=== PATIENT | female | born 1990 | race Hispanic/Latino ===

== ENCOUNTER 2020-02-05 14:44 | Emergency (ER) | payer MEDICAID ==
[2020-02-05] MEDS ORDERED: ONDANSETRON HCL 4 MG/2 ML VIAL ONE (16:47)
[2020-02-05 17:10] LABS: BASOPHILS % (AUTO) 0.2 % (0.0-5.0); HEMATOCRIT 37.6 % (36-48); MEAN CORPUSCULAR HEMOGLOBIN 26.1 pg (27.0-33.0); MEAN CORPUSCULAR HGB CONC 32.4 g/dL (32.0-36.0); MEAN CORPUSCULAR VOLUME 80.3 fL (79-99); MONOCYTES % (AUTO) 5.9 % (3.0-13.0); NEUTROPHILS % (AUTO) 80.2 % (40.0-77.0); PLATELET COUNT (AUTO) 289 K/uL (130-400); RED BLOOD CELL COUNT(AUTO) 4.68 MIL/uL (4.00-5.50); RED CELL DISTRIBUTION WIDTH 14.6 % (11.0-15.5); WHITE BLOOD COUNT (AUTO) 9.9 K/uL (4.8-10.8)
[2020-02-05 17:33] LABS: ALBUMIN 2.9 g/dL (3.5-5.0); BILIRUBIN,TOTAL 0.3 mg/dL (0.2-1.0); CREATININE 0.4 mg/dL (0.5-1.5); TOTAL PROTEIN, SERUM 7.4 g/dL (6.0-8.3)
[2020-02-05] MEDS ORDERED: POTASSIUM BICARB/CIT AC 25 MEQ TABLET.EFF ONE (17:53)
== END 2020-02-05 18:31 | disposition home or self-care (01) ==
LOC: EDH 14:44
DX: O21.9 Vomiting of pregnancy, unspecified (principal); Z3A.20 20 weeks gestation of pregnancy; Z90.49 Acquired absence of other specified parts of digestive tract
CPT/HCPCS: 36415; 80053; 82550; 84484; 85025; 93005; 96361; 96374; 99284; J2405

== ENCOUNTER 2020-05-24 17:21 | Observation (INO) | payer MEDICAID ==
[~2020-05-24] VITALS: Ht 154.9 cm; Wt 78.5 kg
[2020-05-24 18:00] LABS: APPEARANCE,URINE Clear (CLEAR); BILIRUBIN,URINE Negative (NEGATIVE); COLOR,URINE Yellow (YELLOW); GLUCOSE, URINE (UA) Negative (NEGATIVE); KETONES,URINE Negative (NEGATIVE); LEUKOCYTE ESTERASE ,URINE Large (NEGATIVE); NITRATE,URINE Negative (NEGATIVE); OCCULT BLOOD,URINE Negative (NEGATIVE); PH,URINE 7.5 (5.0-8.0); PROTEIN,URINE Negative (NEGATIVE)
[2020-05-24 18:08] LABS: BACTERIA,URINE Few /HPF (None Seen); RBC,URINE 0-1 /HPF (0-1); SQUAMOUS EPITHELIAL CELL,UR Moderate /HPF (0-2); TRANSITIONAL EPI CELLS,URINE Few /HPF (None Seen)
[2020-05-24] MEDS: LACTATED RINGERS 1000ML 1,000 ML IV SCH ×2 (18:25→18:43)
[2020-05-24] MEDS ORDERED: AMPICILLIN 2GM+NS 100ML 100 ML IV SCH (19:00)
[2020-05-24] MEDS ORDERED: OXYTOCIN-LR 20 UNITS/1000 ML 1,000 ML IV SCH (19:00)
[2020-05-24 19:05] LABS: HEMATOCRIT 31.2 % (36-48); MEAN CORPUSCULAR HEMOGLOBIN 25.2 pg (27.0-33.0); MEAN CORPUSCULAR HGB CONC 32.1 g/dL (32.0-36.0); MEAN CORPUSCULAR VOLUME 78.6 fL (79-99); RED BLOOD CELL COUNT(AUTO) 3.97 MIL/uL (4.00-5.50); RED CELL DISTRIBUTION WIDTH 14.3 % (11.0-15.5); WHITE BLOOD COUNT (AUTO) 10.8 K/uL (4.8-10.8)
[2020-05-24] MEDS: AMPICILLIN 1GM+NS 50ML 50 ML IV SCH (23:40)
[2020-05-25] MEDS: AMPICILLIN 1GM+NS 50ML 50 ML IV SCH (03:25)
[2020-05-25] MEDS: LACTATED RINGERS 1000ML 1,000 ML IV SCH (03:25)
[2020-05-25] MEDS ORDERED: PREN-196 PO (04:27)
[2020-05-25] MEDS ORDERED: TERBUTALINE SULFATE VIAL 1MG/ML SQ SCH (06:30)
[2020-05-25] MEDS ORDERED: LACTATED RINGERS 1000ML 1,000 ML IV SCH (06:30)
[2020-05-25 12:37] LABS: RAPID PLASMA REAGIN NONREACTIVE (NONREACTIVE)
[2020-05-26 07:15] LABS: HEPATITIS Bs ANTIGEN SCREEN P Negative (Negative)
== END 2020-05-25 08:00 | disposition home or self-care (01) ==
LOC: EDH 17:21 → LDH 17:22
PROVIDERS: ADMIT Obstetrics & Gynecology; ATTEND Obstetrics & Gynecology
DX: O62.9 Abnormality of forces of labor, unspecified (principal); Z90.49 Acquired absence of other specified parts of digestive tract; Z3A.36 36 weeks gestation of pregnancy
CPT/HCPCS: 36415; 81001; 85027; 86592; 86701; 86850; 86900; 86901; 87088; 87340; 87390; 96361 ×2; 96365; 96366 ×2; 99284; G0378 ×8; J0290 ×3; J7120 ×3; 96360; J3105

== ENCOUNTER 2020-05-28 15:46 | Observation (INO) | payer MEDICAID ==
[~2020-05-28] VITALS: Ht 154.9 cm; Wt 78.0 kg
[~2020-05-28 15:46] MED LIST: PREN-196 PO
[2020-05-28 16:36] LABS: APPEARANCE,URINE Cloudy (CLEAR); BILIRUBIN,URINE Negative (NEGATIVE); COLOR,URINE Yellow (YELLOW); GLUCOSE, URINE (UA) Negative (NEGATIVE); KETONES,URINE 40 mg/dL (NEGATIVE); LEUKOCYTE ESTERASE ,URINE Large (NEGATIVE); NITRATE,URINE Negative (NEGATIVE); OCCULT BLOOD,URINE Small (NEGATIVE); PH,URINE 6.5 (5.0-8.0); PROTEIN,URINE Negative (NEGATIVE)
[2020-05-28] MEDS: LACTATED RINGERS 1000ML 1,000 ML IV SCH ×2 (16:40→18:04)
[2020-05-28 16:45] LABS: BACTERIA,URINE Few /HPF (None Seen); SQUAMOUS EPITHELIAL CELL,UR Moderate /HPF (0-2); TRANSITIONAL EPI CELLS,URINE Few /HPF (None Seen)
[2020-05-28 16:46] LABS: YEAST,URINE BUDDING Rare /HPF (None Seen)
[2020-05-28 18:57] LABS: HEMATOCRIT 31.5 % (36-48); MEAN CORPUSCULAR HEMOGLOBIN 24.9 pg (27.0-33.0); MEAN CORPUSCULAR HGB CONC 31.4 g/dL (32.0-36.0); MEAN CORPUSCULAR VOLUME 79.1 fL (79-99); PLATELET COUNT (AUTO) 270 K/uL (130-400); RED BLOOD CELL COUNT(AUTO) 3.98 MIL/uL (4.00-5.50); RED CELL DISTRIBUTION WIDTH 14.5 % (11.0-15.5); WHITE BLOOD COUNT (AUTO) 11.3 K/uL (4.8-10.8)
[2020-05-28] MEDS ORDERED: ROPIVACAINE 0.2% 100ML VIAL 100 ML EP SCH (19:00)
[2020-05-28] MEDS ORDERED: LACTATED RINGERS 500 ML 500 ML IV PRN (19:00)
[2020-05-28] MEDS ORDERED: NALOXONE HCL 0.4 MG/1 ML ML IV PRN (19:00)
[2020-05-28] MEDS ORDERED: LACTATED RINGERS 1000ML 1,000 ML IV PRN (19:00)
[2020-05-28] MEDS ORDERED: AMPICILLIN 2GM+NS 100ML 100 ML IV SCH (19:00)
[2020-05-28] MEDS ORDERED: MEPERIDINE-PF 50 MG/ML SYG IVP PRN (19:00)
[2020-05-28] MEDS ORDERED: PROMETHAZINE HCL 25 MG/ML 1ML AMPULE IM PRN (19:00)
[2020-05-28] MEDS ORDERED: EPHEDRINE SULFATE 50 MG/ML AMPULE IVP PRN (19:00)
[2020-05-28] MEDS ORDERED: OXYTOCIN-LR 20 UNITS/1000 ML 1,000 ML IV SCH (19:00)
[2020-05-28 19:18] LABS: AMPHET/METH SCREEN,URINE NEGATIVE (NEGATIVE); BARBITURATE SCREEN, URINE NEGATIVE (NEGATIVE); BENZODIAZEPINES SCREEN,URINE NEGATIVE (NEGATIVE); CANNABINOID SCREEN,URINE NEGATIVE (NEGATIVE); COCAINE SCREEN,URINE NEGATIVE (NEGATIVE); OPIATE SCREEN,URINE NEGATIVE (NEGATIVE); PHENCYCLIDINE SCREEN,URINE NEGATIVE (NEGATIVE)
[2020-05-28] MEDS ORDERED: LIDOCAINE HCL 1% 20 ML VIAL ONE (20:40)
[2020-05-28] MEDS: AMPICILLIN 1GM+NS 50ML 50 ML IV SCH (23:02)
[2020-05-29] MEDS: AMPICILLIN 1GM+NS 50ML 50 ML IV SCH ×2 (02:56→08:44)
[2020-05-29] MEDS: LACTATED RINGERS 1000ML 1,000 ML IV SCH ×2 (02:57→08:44)
== END 2020-05-29 10:05 | disposition home or self-care (01) ==
LOC: EDH 15:46 → LDH 15:47
PROVIDERS: ADMIT Obstetrics & Gynecology; ATTEND Obstetrics & Gynecology
DX: O62.9 Abnormality of forces of labor, unspecified (principal); M54.5 Low back pain; Z90.49 Acquired absence of other specified parts of digestive tract; Z98.890 Other specified postprocedural states; Z3A.37 37 weeks gestation of pregnancy
CPT/HCPCS: 36415; 80305; 81001; 85027; 86592; 86850; 86900; 86901; 87340; 96361 ×2; 96365; 96366 ×2; 96372; 96375; 99284; G0378 ×10; J0290 ×4; J2175; J2550; J2590; J7120 ×5; 96360

== ENCOUNTER 2020-06-08 07:04 | Inpatient (IN) | payer MEDICAID ==
[~2020-06-08] VITALS: Ht 154.9 cm; Wt 74.8 kg
[2020-06-08] MEDS ORDERED: OXYTOCIN 10 USP UNITS/ML 20 UNIT in LACTATED RINGERS 1000ML 1,000 ML IV SCH (07:45)
[2020-06-08 08:03] LABS: HEMATOCRIT 33.9 % (36-48); MEAN CORPUSCULAR HEMOGLOBIN 24.2 pg (27.0-33.0); MEAN CORPUSCULAR VOLUME 78.1 fL (79-99); PLATELET COUNT (AUTO) 288 K/uL (130-400); RED BLOOD CELL COUNT(AUTO) 4.34 MIL/uL (4.00-5.50); RED CELL DISTRIBUTION WIDTH 14.5 % (11.0-15.5); WHITE BLOOD COUNT (AUTO) 14.9 K/uL (4.8-10.8)
[2020-06-08] MEDS ORDERED: OXYTOCIN-LR 20 UNITS/1000 ML 1,000 ML IV SCH ×3 (08:45→13:30)
[2020-06-08] MEDS: BUTORPHANOL TARTRATE 2 MG/ML IVP PRN ×2 (09:02→10:31)
[2020-06-08] MEDS ORDERED: LIDOCAINE HCL 1% 20 ML VIAL INJ PRN (10:15)
[2020-06-08] MEDS ORDERED: METHYLERGONOVINE MALEATE 0.2 MG/1 ML ML ONE ×2 (11:07→13:46)
[2020-06-08] MEDS: IBUPROFEN 600 MG TABLET PO PRN (11:42)
[2020-06-08] MEDS ORDERED: MEASLES/MUMPS/RUBELLA VACCINE, LIVE 0.5 ML/VIAL SQ PRN (11:45)
[2020-06-08] MEDS ORDERED: ACETAMINOPHEN-CODEINE 300/30MG TAB PO PRN (11:45)
[2020-06-08] MEDS ORDERED: WITCH HAZEL 1 PAD TP PRN (11:45)
[2020-06-08] MEDS ORDERED: BENZOCAINE/LANOLIN/ALOE VERA 60 ML AEROSOL TP PRN (11:45)
[2020-06-08] MEDS ORDERED: LANOLIN 30GM OINTMENT TP PRN (11:45)
[2020-06-08] MEDS ORDERED: DIPH,PERTUSS(ACELL),TET VAC/PF 0.5 ML VIAL IM PRN (11:45)
[2020-06-08 13:01] VITALS: BP 123/75
[2020-06-08] MEDS ORDERED: AMMONIA 1 EA AMP IH ONE (13:39)
[2020-06-08] MEDS ORDERED: MISOPROSTOL 100 MCG TABLET ONE (13:46)
[2020-06-08] MEDS ORDERED: MISOPROSTOL 200 MCG TABLET ONE (13:49)
[2020-06-08] MEDS ORDERED: TRANEXAMIC ACID 1000MG/10ML ONE (13:56)
[2020-06-08] MEDS ORDERED: OXYTOCIN-LR 20 UNITS/1000 ML IV SCH (14:00)
[2020-06-08] MEDS ORDERED: TRANEXAMIC ACID 1,000 MG in SODIUM CHLORIDE 0.9% 100 ML IV SCH (14:00)
[2020-06-08] MEDS ORDERED: LACTATED RINGERS 1000ML 1,000 ML IV SCH (14:00)
[2020-06-08] MEDS ORDERED: METHYLERGONOVINE MALEATE 0.2 MG/1 ML ML IM SCH (14:15)
[2020-06-08] MEDS ORDERED: MEPERIDINE-PF 50 MG/ML SYG ONE (14:15)
[2020-06-08 14:23] LABS: HEMATOCRIT 31.3 % (36-48); MEAN CORPUSCULAR HEMOGLOBIN 24.8 pg (27.0-33.0); MEAN CORPUSCULAR HGB CONC 31.6 g/dL (32.0-36.0); MEAN CORPUSCULAR VOLUME 78.4 fL (79-99); RED BLOOD CELL COUNT(AUTO) 3.99 MIL/uL (4.00-5.50); RED CELL DISTRIBUTION WIDTH 14.3 % (11.0-15.5); WHITE BLOOD COUNT (AUTO) 23.1 K/uL (4.8-10.8)
[2020-06-08] MEDS ORDERED: COMPOUND IV REFRIGERATED 1 EACH IVSOLN MISC PRN (14:30)
[2020-06-08 14:43] LABS: INR 0.92 (0.85-1.15); PARTIAL THROMBOPLASTIN TIME 26.7 SEC (26.3-35.5)
[2020-06-08] MEDS ORDERED: MISOPROSTOL 200 MCG TABLET PR SCH (15:00)
[2020-06-08] MEDS ORDERED: METHYLERGONOVINE MALEATE 0.2 MG/1 ML ML IM ONE (15:00)
[2020-06-08] MEDS: CEFOXITIN SODIUM 2 GM VIAL IVP SCH ×2 (15:58→22:19)
[2020-06-08 17:39] LABS: BASOPHILS % (AUTO) 0.2 % (0.0-5.0); EOSINOPHILS % (AUTO) 0.2 % (0.0-8.0); HEMATOCRIT 27.3 % (36-48); LYMPHOCYTES % (AUTO) 5.9 % (21.0-51.0); MEAN CORPUSCULAR HEMOGLOBIN 24.7 pg (27.0-33.0); MEAN CORPUSCULAR HGB CONC 31.9 g/dL (32.0-36.0); MEAN CORPUSCULAR VOLUME 77.6 fL (79-99); MONOCYTES % (AUTO) 5.6 % (3.0-13.0); NEUTROPHILS % (AUTO) 87.4 % (40.0-77.0); PLATELET COUNT (AUTO) 252 K/uL (130-400); RED BLOOD CELL COUNT(AUTO) 3.52 MIL/uL (4.00-5.50); RED CELL DISTRIBUTION WIDTH 14.4 % (11.0-15.5); WHITE BLOOD COUNT (AUTO) 23.7 K/uL (4.8-10.8)
[2020-06-08] MEDS: ACETAMINOPHEN 325 MG TAB PO PRN ×2 (18:10→23:17)
[2020-06-08] MEDS: DOCUSATE SODIUM 100 MG CAP PO SCH (21:21)
[2020-06-08] MEDS: LACTATED RINGERS 1000ML 1,000 ML IV PRN (22:59)
[2020-06-09] MEDS: IBUPROFEN 600 MG TABLET PO PRN ×2 (00:40→06:18)
[2020-06-09] MEDS: ACETAMINOPHEN 325 MG TAB PO PRN (04:32)
[2020-06-09] MEDS: CEFOXITIN SODIUM 2 GM VIAL IVP SCH ×5 (04:40→21:49)
[2020-06-09] MEDS: LACTATED RINGERS 1000ML 1,000 ML IV PRN (06:24)
[2020-06-09 06:40] LABS: HEMATOCRIT 23.9 % (36-48); MEAN CORPUSCULAR HEMOGLOBIN 24.5 pg (27.0-33.0); MEAN CORPUSCULAR HGB CONC 31.4 g/dL (32.0-36.0); MEAN CORPUSCULAR VOLUME 78.1 fL (79-99); RED BLOOD CELL COUNT(AUTO) 3.06 MIL/uL (4.00-5.50); RED CELL DISTRIBUTION WIDTH 14.6 % (11.0-15.5); WHITE BLOOD COUNT (AUTO) 17.5 K/uL (4.8-10.8)
[2020-06-09] MEDS: DOCUSATE SODIUM 100 MG CAP PO SCH ×2 (08:03→20:37)
[2020-06-09 11:13] LABS: HEPATITIS Bs ANTIGEN SCREEN P Negative (Negative)
[2020-06-09] MEDS ORDERED: AMMONIA 1 EA AMP IH ONE (12:43)
[2020-06-09] MEDS ORDERED: ACETAMINOPHEN EXTRA STRENGTH 500 MG TABLET PO SCH (14:20)
[2020-06-09] MEDS ORDERED: DiphenhydrAMINE HCL 50 MG/ML VIAL IV SCH (14:40)
[2020-06-09 16:32] VITALS: BP 128/90
[2020-06-09 20:00] VITALS: BP 130/91
[2020-06-09 23:42] VITALS: BP 123/76
[2020-06-10] MEDS: CEFOXITIN SODIUM 2 GM VIAL IVP SCH ×2 (04:01→10:57)
[2020-06-10 04:11] VITALS: BP 111/69
[2020-06-10 07:40] VITALS: BP 122/82
[2020-06-10] MEDS: DOCUSATE SODIUM 100 MG CAP PO SCH (08:30)
[2020-06-10] MEDS: IBUPROFEN 600 MG TABLET PO PRN (08:32)
[2020-06-10 12:00] VITALS: BP 117/88
== END 2020-06-10 13:50 | disposition home or self-care (01) | DRG 560 ==
LOC: EDH 07:04 → OBSVTOIN 07:05 → LDH 07:05 → WSH 12:59 → LDH 15:21 → WSH 06-09 16:30
PROVIDERS: ADMIT Obstetrics & Gynecology; ATTEND Obstetrics & Gynecology
PROC: 10E0XZZ Delivery of Products of Conception, External Approach (ICD-10-PCS; principal; 2020-06-08)
PROC: 10907ZC Drainage of Amniotic Fluid, Therapeutic from Products of Conception, Via Natural or Artificial Opening (ICD-10-PCS; 2020-06-08)
PROC: 30233N1 Transfusion of Nonautologous Red Blood Cells into Peripheral Vein, Percutaneous Approach (ICD-10-PCS; 2020-06-08)
PROC: 3E0234Z Introduction of Serum, Toxoid and Vaccine into Muscle, Percutaneous Approach (ICD-10-PCS; 2020-06-08)
PROC: 3E0134Z Introduction of Serum, Toxoid and Vaccine into Subcutaneous Tissue, Percutaneous Approach (ICD-10-PCS; 2020-06-08)
DX: O72.1 Other immediate postpartum hemorrhage (principal); Z3A.38 38 weeks gestation of pregnancy; Z37.0 Single live birth; Z23 Encounter for immunization
CPT/HCPCS: 36415; 85025; 85027; 85384; 85610; 85730; 86592; 86850; 86900; 86901; 86923; 87340; A4314; A4351; G0378; J0595; J0694; J1200; J2175; J2210; J2590; J3490; J7120; P9016

== ENCOUNTER 2020-07-28 08:00 | Day surgery (SDC) | payer MEDICAID ==
[2020-07-25 12:45] VITALS: BP 123/78
[2020-07-25 13:09] LABS: BASOPHILS % (AUTO) 0.5 % (0.0-5.0); EOSINOPHILS % (AUTO) 1.6 % (0.0-8.0); HEMATOCRIT 38.6 % (36-48); MEAN CORPUSCULAR HEMOGLOBIN 25.7 pg (27.0-33.0); MEAN CORPUSCULAR HGB CONC 31.3 g/dL (32.0-36.0); MONOCYTES % (AUTO) 6.7 % (3.0-13.0); PLATELET COUNT (AUTO) 369 K/uL (130-400); RED BLOOD CELL COUNT(AUTO) 4.71 MIL/uL (4.00-5.50); RED CELL DISTRIBUTION WIDTH 15.9 % (11.0-15.5); WHITE BLOOD COUNT (AUTO) 9.3 K/uL (4.8-10.8)
[2020-07-28] VITALS (17 sets, daily range): BP systolic 114–128; BP diastolic 66–91
[~2020-07-28] VITALS: Ht 154.9 cm; Wt 68.3 kg
[~2020-07-28 08:00] MED LIST changes: +IRON18TA PO; +LACTATED RINGERS 1000ML 1,000 ML IV SCH; -PREN-196 PO
[2020-07-28] MEDS ORDERED: MIDAZOLAM HCL 1 MG/ML 2ML VIAL ONE (08:15)
[2020-07-28] MEDS ORDERED: ONDANSETRON HCL 4 MG/2 ML VIAL ONE (08:16)
[2020-07-28] MEDS ORDERED: FENTANYL CITRATE PF 50 MCG/1 ML 2ML VIAL ONE ×2 (08:16→09:40)
[2020-07-28] MEDS ORDERED: DEXAMETHASONE SOD PHOSPHATE 10MG/ML 1ML VIAL ONE (08:16)
[2020-07-28] MEDS: CALDOLOR 800MG+NS 250ML 250 ML IV PRN ×2 (09:16→09:45)
[2020-07-28] MEDS: CEFAZOLIN SODIUM 1 GM VIAL IVP ONE ×2 (09:16→09:35)
[2020-07-28] MEDS ORDERED: BUPIVACAINE/PF 0.25% 30ML VIAL IJ ONE (09:28)
== END 2020-07-28 12:00 | disposition home or self-care (01) ==
LOC: DAH 08:00
PROVIDERS: ATTEND Obstetrics & Gynecology
DX: Z30.2 Encounter for sterilization (principal); Z20.828 Contact with and (suspected) exposure to other viral communicable diseases; N85.4 Malposition of uterus
CPT/HCPCS: 36415 ×2; 58670; 84703; 85025; 86850 ×2; 86900 ×2; 86901 ×2; A4215; A4216; A4221; A4222; A4223 ×2; A4351; A4510; A4600; A4663; A6260; C1769 ×2; C9803; G0168; J0690; J1100; J1741; J2250; J2405; J3010 ×2; J3490; J7030; J7120 ×2; U0003